=== PATIENT | male | born 1960 | race Caucasian/White ===

== ENCOUNTER 2018-11-19 14:09 | Emergency (ER) | payer OTHER ==
[~2018-11-19] VITALS: Ht 170.2 cm; Wt 110.0 kg
[2018-11-19] MEDS ORDERED: LOSARTAN POT50 MG PO (14:22)
[2018-11-19] MEDS ORDERED: AMLODIPINE10 MG PO (14:22)
[2018-11-19] MEDS ORDERED: CARVEDILOL25 MG PO (14:22)
[2018-11-19] MEDS ORDERED: CRESTOR10 MG PO (14:23)
[2018-11-19] MEDS ORDERED: CHLORTHALID25 MG PO (14:24)
[2018-11-19] MEDS ORDERED: NOVOLOG100 UNIT/M (14:24)
[2018-11-19] MEDS ORDERED: LANTUS100 UNIT/M SC (14:24)
[2018-11-19] MEDS ORDERED: TESSALON PERLE100 MG PO (15:51)
[2018-11-19] MEDS ORDERED: ZITHROMAX500 MG PO (15:51)
[2018-11-19 16:11] VITALS: BP 116/44
== END 2018-11-19 16:11 | disposition home or self-care (01) | DRG 153 ==
LOC: ED 14:09
DX: J06.9 Acute upper respiratory infection, unspecified (principal); I10 Essential (primary) hypertension; E11.40 Type 2 diabetes mellitus with diabetic neuropathy, unspecified; Z79.4 Long term (current) use of insulin

== ENCOUNTER 2021-03-19 11:39 | Inpatient (IN) | payer OTHER ==
[~2021-03-19] VITALS: Ht 167.6 cm; Wt 95.0 kg
[~2021-03-19 11:39] MED LIST: AMLODIPINE10 MG PO; CARVEDILOL25 MG PO; CHLORTHALID25 MG PO; CRESTOR10 MG PO; LANTUS100 UNIT SC; LOSARTAN POT50 MG PO; NOVOLOG100 UNIT/M; TESSALON PERLE100 MG PO; ZITHROMAX500 MG PO
--- NOTE | 2021-03-19 11:59 | NUR ---
PT ESCORTED TO ROOM 14 WITH NEW ONSET FOOT PAIN, REDNESS AND SWELLING. WOUND NOTED TO RIGHT FOOT BETWEEN SECOND THROUGH FOURTH DIGIT.
[2021-03-19 13:02] LABS: HEMOGLOBIN 11.8 g/dl (14.0-18.0); IMMATURE GRANULOCYTES 0.4 % (0.0-5.0); MEAN CELL VOLUME 82.6 fL CALC (80.0-100.0); MEAN CORPUSCULAR HGB 27.1 pG CALC (26.0-32.0); MEAN CORPUSCULAR HGB CONC 32.8 g/dL CAL (32.0-36.0); NEUT# 12.06 thou/uL (1.82-7.42); RED BLOOD COUNT 4.36 mill/uL (4.70-6.10); RED CELL DISTRI WIDTH 12.9 % (11.5-15.5)
[2021-03-19 13:29] LABS: ALBUMIN 3.3 g/dL (3.2-5.0); BILIRUBIN, TOTAL 0.4 mg/dL (0.0-1.4); CREATININE 2.9 mg/dL (0.7-1.3); POTASSIUM 3.9 mmol/l (3.5-5.1)
--- NOTE | 2021-03-19 14:09 | NUR ---
PT AOX3, NAD, RESTING ON CARDIAC MONITORING
--- NOTE | 2021-03-19 15:18 | NUR ---
GAVE REPORT OT BHAVNA ANTOINE RN, CALLED DR TORRES FOR ADMITING ORDERS
--- NOTE | 2021-03-19 15:36 | NUR ---
REPORT WAS RECEIVED FROM LACIE ESCOBAR. PATIENT CAME FROM ER VIA WHEELCHAIR. PATIENT AMBULATED TO BED. IN ROOM. SAFETY PRECAUTIONS REINFORCED AND CALL LIGHT IN REACH.
[2021-03-19 15:46] VITALS: BP 173/78
--- NOTE | 2021-03-19 15:50 | NUR ---
ASSESSMENT DONE. PATIENT IS ALERT AND ORIENT X3. PATIENT DENIES PAIN. RESPS EVEN AND UNLABORED. PATIENT STATED HE IS ANXIOUS . DISCUSS POC AND PATIENT VERBALIZED UNDERSTANDING. RIGHT LEG FOOT +3 EDEMA AND WARM TO THE TOUCH. WOUND RIGHT FOOT BETWEEN SECOND THROUGH FOURTH DIGIT NOTED AND MILD CLEAR/PINKISH DRAINGE NOTED. CALL LIGHT IN REACH.
[2021-03-19] MEDS ORDERED: D31000 UNI1 PO (17:03)
[2021-03-19 17:55] VITALS: BP 166/75
--- NOTE | 2021-03-19 19:21 | NUR ---
PT RESTING IN BED, NO SIGNS OF DISTRESS NOTED, RESP EVEN AND UNLABORED. PT ALERT AND ORIENTED X3, NOTED EDEMA TO BLE, MORE ON THE RIGHT. REDNESS AND EDEMA TO R FOOT, NO DRAINAGE NOTED BUT CRUSTING TO TOES NOTED. PT DENIES ANY PAIN TO FOOT. PULSES WEAK, CAPILLARY REFILL BRISK, SKIN WARM TO TOUCH. DISCUSSED POC, PT VERBALIZED UNDERSTANDING. NOTED PT HAS A NON PRODUCTIVE PERSISTENT COUGH. ASSESSMENT COMPLETED, CALL LIGHT IN REACH, CONTINUE TO MONITOR.
--- NOTE | 2021-03-19 21:05 | NUR ---
NOTIFIED MD OF COUGH AND ORDERS ENTERED VIA CPOE, ENTERED ROOM PT SITTING ON SIDE OF BED, NO SIGNS OF DISTRESS NOTED, RESP EVEN AND UNLABORED, PT MEDICATED PER JUL, BLOOD SUGAR CHECKED VIA DEVICE TO L ARM, BLOOD SUGAR 189, DISCUSSED WITH PT SLIDING SCALE INSULIN AND LEVEMIR, PT STATES HE DOESN'T NORMALLY TAKE LEVEMIR AT NIGHT AND REFUSED HIS DOSE, DOCUMENTED ON JUL. PT APPRECIATIVE OF COUGH SYRUP, VOICES NO OTHER NEEDS OR COMPLAINTS AT THIS TIME. CALL LIGHT IN REACH,CONTINUE TO MONITOR.
--- NOTE | 2021-03-19 22:00 | NUR ---
PT RESTING IN BED WITH EYES CLOSED, NO SIGNS OF DISTRESS NOTED, RESP EVEN AND UNLABORED. CALL LIGHT IN REACH,CONTINUE TO MONITOR.
--- NOTE | 2021-03-20 | NUR ---
PT RESTING IN BED WITH EYES CLOSED,NO SIGNS OF DISTRESS NOTED, RESP EVEN AND UNLABORED. IV ZOSYN INFUSING, CALL LIGHT IN REACH, CONTINUE TO MONITOR.
--- NOTE | 2021-03-20 03:39 | NUR ---
PT RESTING IN BED, OWNER/PHOTOGRAPHER OBTAINED AM VITALS, NO SIGNS OF DISTRESS NOTED, RESP EVEN AND UNLABORED. PT HAS A LOW GRADE TEMP, VOICES NO NEEDS OR COMPLAINTS AT THIS TIME, CALL LIGHT IN REACH,CONTINUE TO MONITOR.
[2021-03-20 04:00] VITALS: BP 167/86
[2021-03-20 06:07] LABS: HEMATOCRIT 32.7 % (39.0-50.0); HEMOGLOBIN 10.5 g/dl (14.0-18.0); MEAN CELL VOLUME 84.3 fL CALC (80.0-100.0); MEAN CORPUSCULAR HGB 27.1 pG CALC (26.0-32.0); MEAN CORPUSCULAR HGB CONC 32.1 g/dL CAL (32.0-36.0); RED BLOOD COUNT 3.88 mill/uL (4.70-6.10)
[2021-03-20 06:36] LABS: CREATININE 2.5 mg/dL (0.7-1.3)
[2021-03-20 08:07] VITALS: BP 154/76
--- NOTE | 2021-03-20 08:52 | NUR ---
PATIENT IS SITTING IN THE SIDE OF THE BED. ASSESSMENT DONE. PATIENT IS ALERT AND ORIENT X3. PATIENT DENIES PAIN AT THIS TIME. PATIENT HAS A DRY COUGH . MEDICATED PATIENT WITH ROBITUSSIN. RIGHT LEG FOOT IS WARM TO THE TOUCH WITH REDNESS NOTED. PATIENT DENIES ANY OTHER NEEDS AT THIS TIME. CALL LIGHT IN REACH.
--- NOTE | 2021-03-20 12:00 | NUR ---
PATIENT SITTING IN THE SIDE OF THE BED EATING HIS LUNCH. PATIENT DENIES ANY NEEDS AT THIS TIME. CALL LIGHT IN REACH.
--- NOTE | 2021-03-20 15:09 | NUR ---
PATIENT IS SITTING IN THE RECLINER WITH NO DISTRESS NOTED. PATIENT DENIES PAIN. LEGS ELEVATED IN RECLINER. CALL LIGHT IN REACH.
[2021-03-20 15:45] VITALS: BP 130/69
[2021-03-20 19:49] VITALS: BP 161/72
--- NOTE | 2021-03-20 20:00 | NUR ---
PATIENT SITTING ON THE SIDE OF THE BED AT THIS TIME. AWAKE ALERT AND ORIENTEDX3. PATIENT WITH FEET HANGING OFF THE BED. RIGHT FOOT IS RED AND SWOLLEN AT THIS TIME-ENCOURAGE PATIENT TO ELEVATE THE RIGHT FOOT ON PILLOW MUYCH POSSIBLE. PATIENT WITH IV SITE TO LAC INTACT WITH IVF NS PATENT AND INFUSING AT 75CC/HR. SITE IS HEALTHY AT THIS TIME. SAFETY PRECAUTIONS REINFORCED. CALL LIGHT IN REACH. WILL CONT TO MONITOR.
--- NOTE | 2021-03-20 21:00 | NUR ---
PATIENT RESTING IN BED AT THIS TIME-ACCUCHECK WAS 97 PER PATIENT DEXACON. PATIENT REFUSING HIS LEVEMIR AT THIS TIME-STATES THAT HE HAS BEEN RUNNING LOW LATELY AND ONLY TAKES HIS LANTUS AT HOME ONCE A DAY-WILL DISCUSS WITH MD IN AM. PROVIDED WITH HS SNACK. NON-PRODUCTIVE COUGH NOTED AND MEDICATED WITH ROBITUSSIN ORDERED. CALL LIGHT IN REACH. WILL CONT TO MONITOR.
[2021-03-21] VITALS: BP 166/77
--- NOTE | 2021-03-21 | NUR ---
PATIENT RESTING IN BED WITH RIGHT FOOT ELEVATED INSTRUCTED. CADEN HUNG ORDERED. NO COMPLAINTS AT THIS TIME. OFFERED SLEEP MED BUT DECLINED. CALL LIGHT IN REACH. WILL CONT TO MONITOR.
[2021-03-21 04:00] VITALS: BP 145/72
[2021-03-21 05:08] LABS: HEMATOCRIT 32.9 % (39.0-50.0); HEMOGLOBIN 10.6 g/dl (14.0-18.0); MEAN CELL VOLUME 83.7 fL CALC (80.0-100.0); MEAN CORPUSCULAR HGB CONC 32.2 g/dL CAL (32.0-36.0); RED BLOOD COUNT 3.93 mill/uL (4.70-6.10); RED CELL DISTRI WIDTH 13.1 % (11.5-15.5)
--- NOTE | 2021-03-21 05:15 | NUR ---
PATIENT AWAKE RESTING IN BED-RIGHT FOOT REMAINS VERY RED WITH SOME CRUSTY DRY DRAINAGE TO THE TOES. FAINT PULSE.WARM TO TOUCH. CONT TO ENCOURAGE PATIENT TO KEEP RIGHT FOOT ELEVATED ON PILLOWS. PATIENT CHECKED HIS OWN KANG GLUCOSE MONITORING DEVICE READING 45. PATIENT IS ASYMPTOMATIC AT THIS TIME. SKIN IS WARM AND DRY, COLOR IS WNL. ORIENTEDX3. BS CHECKED USING HOSPITAL GLUCOSE MONITRING DEVICE AND IT IS 77. PATIENT PROVIDED WITH SNACK. IVF NS PATENT AND INFUSING VIA LAC SITE AT 75CC/HR. SAFETY PRECAUTIONS REINFORCED. CALL LIGHT IN REACH. WILL CONT TO MONITOR.
[2021-03-21 05:23] LABS: BILIRUBIN, TOTAL 0.4 mg/dL (0.0-1.4); CREATININE 2.5 mg/dL (0.7-1.3); POTASSIUM 3.6 mmol/l (3.5-5.1); TOTAL PROTEIN 5.6 g/dL (6.3-8.2)
[2021-03-21 05:24] LABS: ALBUMIN 2.6 g/dL (3.2-5.0)
[2021-03-21 07:00] VITALS: BP 148/82
--- NOTE | 2021-03-21 07:00 | NUR ---
PATIENT LAYING IN BED AT THIS TIME RESTING WITH R FOOT UP ON PILLOW AT THIS TIME. PATINET DENIES PAIN AND TOES PRESENT SWOLLEN AND CRUSTY AND RED AT THIS TIME. PATIENT HAS LIBREA TO CHECK ACCU CHECKS BUT HAS BEEN TOLD BY THIS NURSE NOT TO USE THAT WE WILL FINGER STICK AND USE OUR LABS FOR ACCU CHECK RESULTS DUE TO DISCREPENCES IN RESULTS. PATIENT AGREES AND WILL FOLLOW REQUEST. SIDERAILS ARE UP X 2 CALL LIGHT IS WIHTIN REACH. LUNG CARRILLO ARE CLEAR IN UPPER AND DIMINISHED IN LOWER CARRILLO. WILL CONTINUR TO MONITOR.
--- NOTE | 2021-03-21 07:10 | NUR ---
S: BRADEN VASQUEZ is a 60 M who presents with cellulits He has a history of diabetes, hypertension, kidney disease, retinal neuropathy, skin cancer. All medications in patient's chart were reviewed. O: VS: BP 145/72 MMHG, P 72 BPM, RR 18 BPM,T 99.3F W 95 KG, HT 5'6", Scr= 2.5 mg/dL, CrCl= 30.8 mL/min A: Blood culture is pending P: Patient is on Zosyn 3.375 G IV Q6H. Vancomycin ordered for pharmacy to dose. Start Vancomycin 1 G IV Q24H. Vancomycin trough is drawn before the 4th dose on 03/22/2021 @ 1230. Vancomycin goal trough is between 10-15 mcg/ml. Pharmacy will follow and or advise on antibiotics use as needed.
--- NOTE | 2021-03-21 12:00 | NUR ---
PATIENT SITTING UP IN CHAIR AT THIS TIME DENIES ANY PAIN AND OR NEEDS CURRENTLY. PATIENT CALL LIGHT IS WITHIN REACH AND WILL CONTINUE TO MONITOR TOES ON RT FOOT REMAIN DRY AND CRUSTY AT THIS TIME AND SWOLLEN AND RED. WILL CONTINUE TO MONITOR
[2021-03-21 15:51] VITALS: BP 140/73
--- NOTE | 2021-03-21 15:51 | NUR ---
PATIENT SITTING IN RECLINER AT THIS TIME. PATIENT DENIES ANY NEEDS. PATIENT STATED THAT HE WANTS TO GO AND GET A SHOWER SO IV S/LOCKED AT THIS TIME. WITH PATIENT AT THIS TIME TO ASSIST WITH SHOWER. CALL LIGHT IS WITHIN REACH.
--- NOTE | 2021-03-21 16:54 | NUR ---
200MG OF ROBITUSSIN ORAL GIVEN AT THIS TIME FOR NON-PRODUCTIVE COUGH.
[2021-03-21 19:00] VITALS: BP 164/71
--- NOTE | 2021-03-21 20:30 | NUR ---
PATIENT RESTING IN BED AT THIS TIME. AWAKE ALERT AND ORIENTEDX3. PATIENT WITH RIGHT FOOT ELEVATED ON PILLOWS. PATIENT WITH TEMP OF 100.1 EARLIER. MEDICATED WITH TYLENOL FOR LOW GRADE TEMP. IVF PATENT AND INFUSING VIA LAC SITE AT KVO RATE. ACCU-CHECK TONIGHT WAS 80. NO INSULIN GIVEN. INSTRUCTED NPO AFTER MIDNIGHT FOR POSSIBLE OR TOMORROW WITH DR. CHIANG. SAFETY PRECAUTIONS REINFORCED. CALL LIGHT IN REACH. WILL CONT TO MONITOR.
--- NOTE | 2021-03-21 23:56 | NUR ---
PATIENT RESTING IN BED WATCHING TV AT THIS TIME. AFEBRILE. ZOSYN HUNG ORDERED VIA LAC SITE. REINFORCED WITH PATIENT NPO A[place]ER [place] FOR POSSIBLE OR TOMORROW WITH DR. CHIANG. CALL LIGHT IN REACH. WILL CONT TO MONITOR.
[2021-03-22 04:10] VITALS: BP 167/83
--- NOTE | 2021-03-22 04:36 | NUR ---
PATIENT RESTING IN BED AT THIS TIME. EYES ARE CLOSED AND RESPS ARE EVEN AND UNLABORED. RIGHT FOOT ELEVATED ON PILLOWS. REMAINS NPO SINCE MN FOR PO SSIBLE OR TODAY. IVF PATENT AND INFUSING VIALAC SITE AT KVO RATE. CALL LIGHT IN REACH. WILL CONT TO MONITOR.
[2021-03-22 05:16] LABS: HEMATOCRIT 31.1 % (39.0-50.0); HEMOGLOBIN 10.2 g/dl (14.0-18.0); MEAN CELL VOLUME 83.2 fL CALC (80.0-100.0); MEAN CORPUSCULAR HGB 27.3 pG CALC (26.0-32.0); MEAN CORPUSCULAR HGB CONC 32.8 g/dL CAL (32.0-36.0); RED BLOOD COUNT 3.74 mill/uL (4.70-6.10)
[2021-03-22 05:41] LABS: ALBUMIN 2.5 g/dL (3.2-5.0); BILIRUBIN, TOTAL 0.4 mg/dL (0.0-1.4); CREATININE 2.5 mg/dL (0.7-1.3); POTASSIUM 3.3 mmol/l (3.5-5.1); TOTAL PROTEIN 5.5 g/dL (6.3-8.2)
--- NOTE | 2021-03-22 07:46 | NUR ---
SPOKE TO THIS MORNING . PT IS ALLOWED TO HAVE BREAKFAST. PT NEEDS TO BE NPO AFTER [address] CHIANG WAS INFORMED ABOUT MRI THAT WAS ORDERED FOR THIS MORNING . DR. CHIANG SAID PT MIGHT GO DOWN TO SURGERY TONIGHT DEPENDING HOW THE MRI LOOKED.
--- NOTE | 2021-03-22 07:54 | NUR ---
CALL PLACED TO DR VALLADARES BY Peyton RAMOS REGARDING NPO STATUS; PER JACQUELYN PT CAN EAT BREAKFAST; TO BE NPO AFTER 10 AM; DEPENDING ON MRI RESULTS IT WILL DETERMINE IF PT IS TO GO DOWN TO THE OR TODAY. PT UPDATED ON POC & NEW NPO STATUS AFTER 10 AM.
[2021-03-22 08:00] VITALS: BP 182/80
--- NOTE | 2021-03-22 08:00 | NUR ---
PT AWAKE IN RECLINER A &O X3. ASSESMMENT WAS PERFORMED AT THIS TIME: HEART SOUNDS ARE REGULAR. LUNG SOUNDS ARE CLEAR UPPER/LOWER LOBES. BOWEL SOUNDS ACTIVE X4. RADIAL PULSES ARE STRONG. RADIAL PULSES WEAK EQUALLY BILTERALLY. RIGHT FOOT IS SWOLLEN RED/ SLIGHT DARK BLUE UNDER TOE PAD. DISCOLORATION. WARM TO TOUCH. NO DRAINAGE NOTED COMING FROM WOUND. PT STATES DOES NOT HURT WHEN TOUCHED. PT STATES NOT HAVING ANY PAIN AT THIS TIME. PT IV #20 LAC AT KVO. MRI IS SCHEDULED FOR THIS MORNING. PT IS NPO. CALL LIGHT IS WITHIN REACH.
--- NOTE | 2021-03-22 08:27 | NUR ---
DR VIVEROS CONSULT PLACED FOR ABX REC; CELLULITIS; POSS ABSCESS.
--- NOTE | 2021-03-22 10:53 | NUR ---
DR. EL AND LARISSA VALE AT BEDSIDE DISCUSSING POC WITH PT.
--- NOTE | 2021-03-22 12:00 | NUR ---
PT IS ALERT RESTING IN RECLINER WATCHING TV. IV PATENT SHOWING NO SIGNS OF COMPLICATION. PT UNDERSTANDS ABOUT REMAINING NPO AT THIS TIME. RIGHT FOOT STILL INFLAMED/ RED NO DRAINING NOTED. CALL LIGHT IS WITHIN REACH.
[2021-03-22 15:24] VITALS: BP 142/65
--- NOTE | 2021-03-22 16:00 | NUR ---
PT RESTING IN RECLINER ON PHONE WITH FAMILY MEMBER. STATES DISCOMFORT WITH BEING NPO. STATES NO PAIN AT THIS TIME. IV IS PATENT SHOWING NO SIGNS OF INFILTRATION. CALL LIGHT WITHIN REACH.
--- NOTE | 2021-03-22 17:14 | NUR ---
PT LEFT TO OR WITH RN CATIE PT STABLE CONDITION. IV INTACT.
--- NOTE | 2021-03-22 19:45 | NUR ---
PT BACK FROM PACU. PT STATES HE IS FEELING WELL WITH NO PAIN TO HIS RIGHT FOOT. VITALS AND GLUCOSE TAKEN. IV CHECKED AND REESTABLISHED. WILL CONTINUE TO MONITOR.
[2021-03-22 19:51] VITALS: BP 151/57
--- NOTE | 2021-03-22 20:00 | NUR ---
PHYSICAL ASSESMENT COMPLETE. PT CURRENTLY DENIES PAIN OR DISCOMFORT. SCHEDULED MEDICATIONS AND PRN MEDICATION ADMINISTERED, SEE E-MAR. PT DENIES ANY NEEDS AT THIS TIME. PLAN OF CARE REVIEWED, PT DENIES QUESTIONS, VERBALIZES UNDERSTANDING. ITEMS WITHIN REACH, BED LOCKED IN LOW POSITION W/ BEDRAILS UP X2. CALL MORALES WITHIN REACH, AGREES TO CALL PRN.
--- NOTE | 2021-03-22 23:43 | NUR ---
PT LAYING IN BED WITH EYES CLOSED, APPEARS TO BE SLEEPING, APPEARS COMFORTABLE AND IN NO DISTRESS. RESPIRATIONS REGULAR AND UNLABORED. ITEMS REMAIN WITHIN REACH, CALL MORALES REMAINS WITHIN REACH. BED REMAINS LOCKED AND IN LOW POSITION WITH BEDRAILS UP X2. WILL CONTINUE TO MONITOR.
[2021-03-23 04:00] VITALS: BP 176/78
--- NOTE | 2021-03-23 04:00 | NUR ---
PT RESTING IN BED, NO SIGNS OF DISTRESS NOTED, RESP EVEN AND UNLABORED. PT VOICES NO NEEDS OR COMPLAINTS AT THIS TIME. CALL LIGHT IN REACH, CONTINUE TO MONITOR.
[2021-03-23 05:00] LABS: HEMATOCRIT 29.8 % (39.0-50.0); HEMOGLOBIN 9.7 g/dl (14.0-18.0); MEAN CELL VOLUME 82.8 fL CALC (80.0-100.0); MEAN CORPUSCULAR HGB 26.9 pG CALC (26.0-32.0); MEAN CORPUSCULAR HGB CONC 32.6 g/dL CAL (32.0-36.0); RED BLOOD COUNT 3.6 mill/uL (4.70-6.10); RED CELL DISTRI WIDTH 13.1 % (11.5-15.5)
[2021-03-23 05:20] LABS: CREATININE 2.3 mg/dL (0.7-1.3); MAGNESIUM 1.7 mg/dL (1.6-2.3); POTASSIUM 3.6 mmol/l (3.5-5.1)
[2021-03-23 05:45] VITALS: BP 156/68
--- NOTE | 2021-03-23 06:52 | NUR ---
DR VALLADARES AT BEDSIDE DISCUSSING POC
--- NOTE | 2021-03-23 07:35 | NUR ---
PER DR VALLADARES PT ABLE TO BEAR WEIGHT TO RT FOOT WITH HEEL.
--- NOTE | 2021-03-23 07:35 | NUR ---
S: WALKERBRADEN is a 60 M who presents with complaints of erythema and edema to the right foot. He has a history of CKD, DM and HTN. All medications in patient's chart were reviewed. O: VS: BP 156/68 , P 78 , RR 23,T 100.3 W <94.999>, HT167.64, Scr= 2.5 ,CrCl= 33.5 ml/min A: Blood culture show no growth. Wound culture is pending . P: Patient is on metronidazole 100 ml Q8H IV, cefepime Hcl 2g BID IV. Vancomycin ordered for pharmacy to dose. Start Vancomycin 1g IV Q24H. Vancomycin trough is drawn before the 4th dose on 03/25 @1230. Vancomycin goal trough is between <10-15 mcg/ml>. Pharmacy will follow and or advise on antibiotics use as needed.
[2021-03-23 07:44] VITALS: BP 162/70
--- NOTE | 2021-03-23 08:00 | NUR ---
PT SITTING IN RECLINER WITH RIGHT FOOT ELEVATED. DRESSING IS CDI NO REINFORCEMENT NEEDED AT THIS TIME. NO ICE IS ALLOWED ON THE RIGHT FOOT. PT REPORTS NO PAIN AT THIS TIME. IV LOCATED IN LAC KVO @ 20ML/HR. FLUSHED WITH NORMAL SALINE WITH NO RESISTANCE. PT A&O X3, S1 AND S2 HEARD, LUNG SOUNDS ARE CLEAR UPPER LOWER LOBES. BOWEL SOUNDS ARE ACTIIVE X4. RADIAL PULSE STRONG EQUALLY BILATERALLY. PEDAL PULSES ARE WEAK EQUALLY BILATERALLY. CALL LIGHT AND PERSONAL ITEMS ARE WITHIN REACH.
--- NOTE | 2021-03-23 10:06 | NUR ---
DR. EL AND LARISSA VALE IN PT ROOM DISCUSSING POC.
--- NOTE | 2021-03-23 12:00 | NUR ---
PT LAYING RESTING IN BED WITH RIGHT FOOT ELEVATED. IV STILL KVO INFUSING 20 ML/HR WITH NO COMPLICATIONS. DRESSING IS CDI NO REINFORCMENT NEEDED. PT REPORTS NO PAIN AT THIS TIME. PT ENCOURAGED TO USE CALL LIGHT FOR ASSISTANCE. CALL LIGHT WITHIN REACH.
--- NOTE | 2021-03-23 15:31 | NUR ---
PT WITH AT BEDSIDE. NO DISTRESS NOTED.
[2021-03-23 15:33] VITALS: BP 178/79
--- NOTE | 2021-03-23 18:40 | NUR ---
PT RESTING IN BED WITH LEG ELEVATED. DRESSING IS CDI. NO REINFORCEMENT NEEDED AT THIS TIME. IV INFUSING KVO WITH NO COMPLICATION. PT REPORTS NO PAIN AT THIS TIME. CALL LIGHT WITHIN REACH
[2021-03-23 19:25] VITALS: BP 160/80
--- NOTE | 2021-03-23 20:00 | NUR ---
PATIENT AWAKE ALERT AND ORIENTEDX3. PATIENT WITH NO COMPLAINTS AT THIS TIME. DENIES ANY PAIN AT THIS TIME. PATIENT WITH RIGHT FOOT DRESSING CDI AT THIS TIME. ENCOURAGED PATIENT TO KEEP RIGHT LE ELEVATED ON PILLOWS MUCH POSSIBLE. PATIENT IS ABLE TO AMB HEEL WT BEARING PER PODIATRY. FOR FUTHER SURGERY LATER THIS WEEK WITH DR. CHIANG. IVF NS PATENT AND INFUSING VIA LAC SITE AT KVO RATE. SAFETY PRECAUTIONS REINFORCED. CALL LIGHT IN REACH. WILL CONT TO MONITOR.
--- NOTE | 2021-03-23 21:30 | NUR ---
PATIENT RESTING IN BED AT THIS ACDE-IDZG-TJJJI WAS 266. PATIENT STATES THAT HE IS AFRAID TO TAKE LEVEMIR ORDERED AT NIGHT. COVERED WITH HUMALOG PER COVERAGE SCALE. PATIENT AGAIN STATES THAT HE NORMALLY ONLY TAKES HIS LANTUS AT HOME DAILY AND HE TAKE IT IN THE MORNING. WILL PASS ALONG AGAIN IN REPORT IN AM. ANTIBIOTICS GIVEN ORDERED. DENIES PAIN AT THIS TIME. STILL WITH RLE ELEVATED ON PILLOWS. CALL LIGHT IN REACH. WILL CONT TO MONITOR.
[2021-03-24] VITALS (8 sets, daily range): BP systolic 139–189; BP diastolic 67–87
--- NOTE | 2021-03-24 01:00 | NUR ---
PATIENT APPEARS SLEEPING WITH EYES CLOSED. RESPS ARE EVEN AND UNLABORED. IVF PATENT AND INFUSING VIA LAC SITE AT KVO RATE. CALL LIGHT IN REACH. WILL CONT TO MONITOR.
--- NOTE | 2021-03-24 03:47 | NUR ---
RESTING IN BED AT THIS TIME. EYES ARE CLOSED AND RESPS ARE EVEN AND UNLABORED. IVF PATENT AND INFUSING AT KVO RATE LAC SITE. CALL LIGHT IN REACH WILL CONT TO MONITOR.
--- NOTE | 2021-03-24 04:22 | NUR ---
PATIENT SITTING UP IN CHAIR AT THIS TIME-AWAKE ALERT AND ORIENTEDX3. NEW IV STARTED TO RIGHT FOREARM-#22 WITH GOOD BLOOD RETURN. OLD IV SITE TO LAC D/C'ED WITH CATH INTACT. IVF PATENT AND INFUSING VIA RIGHT FOREARM SITE AT KVO RATE. DRESSING TO RIGHT FOOT REMAINS INTACT. ENCOURAGED ELEVATION OF RIGHT LE ON PILLOW MUCH POSSIBLE. SAFETY PRECAUTIONS REINFORCED. CALL LIGHT IN REACH. WILL CONT TO MONITOR.
--- NOTE | 2021-03-24 05:05 | NUR ---
PATIENT UP IN THE ROOM DOING PERSONAL CARE. AMB WITH HEEL BEARING TO RLE. DRESSING TO RIGHT FOOT IS CDI SECURED WITH VALERIA WRAP. RIGHT TOES ARE RED AND WARM TO TOUCH. PATIENT ABLE TO WIGGLE THESE TOES. NO PAIN AT THIS TIME. ENCOURAGED PATIENT TO KEEP RIGHT LE ELEVATED WHEN ABLE. BP-189/82, HR-68. MEDICTED WITH APRESOLINE 10MG IVP ORDERED FOR HTN. CALL LIGHT IN REACH. WILL CONT TO MONITOR.
[2021-03-24 05:41] LABS: CREATININE 2.4 mg/dL (0.7-1.3); POTASSIUM 3.9 mmol/l (3.5-5.1)
--- NOTE | 2021-03-24 05:48 | NUR ---
PATIENT REMAINS UP IN THE RECLINER. BP RECHECK AFTER BEING MEDICATED WAS 161/71, HR-75 WITH O2 SAT OF 94% ON ROOM AIR. YL HUNG ORDERED. WILL CONT TO MONITOR.
--- NOTE | 2021-03-24 14:05 | NUR ---
PT UP TO CHAIR, AT BEDSIDE. NO COMPLAINTS AT THIS TIME. WILL CONTINUE TO MONITOR.
--- NOTE | 2021-03-24 19:27 | NUR ---
PT SITTING ON SIDE OF BED, NO SIGNS OF DISTRESS NOTED, RESP EVEN AND UNLABORED. DISCUSSED POC, PT UNSURE OF WOUND VAC IN AM, QUESTIONS ANSWERED BEST TO WRITERS KNOWLEDGE ALLOWED PT TO EXPRESS HIS CONCERNS, ENCOURAGED PT TO PRESENT HIS CONCERNS IN AM TO MD. PT MEDICATED PER JUL FOR BP, WILL RECHECK IN 1HR. DRESSING TO R FOOT CDI, SKIN WARM, CAPILLARY REFILL BRISK NOTED TO TOES. PT STATES HE HAD A BM TODAY. ASSESSMENT COMPLETED, CALL LIGHT IN REACH,CONTINUE TO MONITOR.
--- NOTE | 2021-03-24 21:26 | NUR ---
PT RESTING IN BED, MEDICATED PER MAR, NO SIGNS OF DISTRESS NOTED, RESP EVEN AND UNLABORED. VOICES NO NEEDS OR COMPLAINTS AT THIS TIME, CALL LIGHT IN REACH,CONTINUE TO MONITOR.
[2021-03-25] VITALS (10 sets, daily range): BP systolic 157–204; BP diastolic 60–94
--- NOTE | 2021-03-25 00:16 | NUR ---
PT SITTING IN RECLINER WATCHING TV, NO SIGNS OF DISTRESS NOTED, RESP EVEN AND UNLABORED. PT VOICES NO NEEDS OR COMPLAINTS AT THIS TIME. CALL LIGHT IN REACH,CONTINUE TO MONITOR.
--- NOTE | 2021-03-25 04:15 | NUR ---
PT RESTING IN BED PRIMARY MILL ROLLER AT BEDSIDE, NO SIGNS OF DISTRESS NOTED,RESP EVEN AND UNLABORED. VOICES NO NEEDS OR COMPLAINTS AT THIS TIME, CALL LIGHT IN REACH,CONTINUE TO MONITOR.
--- NOTE | 2021-03-25 04:27 | NUR ---
RESTING COMFORTABLY, EYES CLOSED. NO DISTRESS NOTED. BED IN LOW POSITION, LOCKED. CALL LIGHT WITHIN REACH.
[2021-03-25 04:34] LABS: HEMATOCRIT 32.6 % (39.0-50.0); HEMOGLOBIN 10.7 g/dl (14.0-18.0); MEAN CELL VOLUME 82.3 fL CALC (80.0-100.0); MEAN CORPUSCULAR HGB CONC 32.8 g/dL CAL (32.0-36.0); RED BLOOD COUNT 3.96 mill/uL (4.70-6.10); RED CELL DISTRI WIDTH 13.2 % (11.5-15.5)
[2021-03-25 04:53] LABS: POTASSIUM 3.5 mmol/l (3.5-5.1)
--- NOTE | 2021-03-25 05:06 | NUR ---
BP ELEVATED, PT HAS A PRN ORDER FOR BENJAMIN SOLORIO AT BEDSIDE TO ADMINISTER, NOTED GLUCOSE 74 PER AM LABS, SNACK PROVIDED. CALL LIGHT IN REACH,CONTINUE TO MONITOR.
--- NOTE | 2021-03-25 05:39 | NUR ---
PT MEDICATED ORDERS PROVIDE. PT SELF ADMINISTERED HEP SHOT TO LOWER ABD AREA.
--- NOTE | 2021-03-25 07:30 | NUR ---
REPORT RECEICED PT UP TO CHAIR. ASSESSMENT PERFORMED, B/P 204/87. PT WAS GIVEN APRESOLINE AT 0503. PT IS NPO AT THIS TIME SINCE 0500. PT GIVEN MORNING MEDIATIONS SLIGHTLY EARLY D/T INCREASED BP. PT BS 111, HOLDING ALL DIABETIC MEDICAITONS. WILL RECHECK BP. PT STATES HE IS ASYMPTOMATIC AT THIS TIME. NO FURTHER CONCERNS. CONTINUE TO MONITOR.
--- NOTE | 2021-03-25 09:00 | NUR ---
INFORMED OR OF INCREASED BP AND MEDICATION ADMIN WITH NPO STATUS. PT GIVEN PRN APRESOLINE. WILL RECHECK BP.
--- NOTE | 2021-03-25 09:45 | NUR ---
BP 130/62. WILL CONTINUE TO MONITOR.
--- NOTE | 2021-03-25 11:01 | NUR ---
PT TO OR VIA STRETCHER
--- NOTE | 2021-03-25 13:44 | NUR ---
PT BACK FROM OR, REORIENTED TO ROOM. NO COMPLAINTS AT THIS TIME WILL CONTINUE TO MONITOR.
--- NOTE | 2021-03-25 16:00 | NUR ---
RETURN FROM OR WITH NEW IV SITE. R AC REMOVED IN OR.
--- NOTE | 2021-03-25 17:16 | NUR ---
PT LYING IN BED LEG ELEVATED NO COMPLAINTS AT THIS TIME. WILL CONTINUE TO MONITOR.
--- NOTE | 2021-03-25 21:13 | NUR ---
PT MEDICATED ORDERS PROVIDE AND ASSESSMENT COMPLETED AT THIS TIME. PT DENIES PAIN/N/V AT THIS TIME. DRESSING TO R.FOOT CDI WITH VALERIA WRAP IN PLACE. SCD TO LLE ON.
--- NOTE | 2021-03-25 21:40 | NUR ---
PT MEDICATED ORDERS PROVIDE. PT REPORTS THAT HE HAD TWO TURKEY SANDWICHES FOR SNACK. MEDICATED WITH LEVEMIR ORDERS PROVIDE. ANTIBIOTIC THERAPY ADMINISTERED AT THIS TIME.
--- NOTE | 2021-03-25 22:30 | NUR ---
ASSISTED PT TO RESTROOM, HE AMBULATED W/OUT ISSUE W/HEEL WEIGHT ONLY. PT BACK TO THE BED, DENIES PAIN AT THIS TIME. IV FLUSHED PATENT.
[2021-03-26 00:05] VITALS: BP 126/54
--- NOTE | 2021-03-26 03:00 | NUR ---
Pt awake dressed and sitting in chair in the room with his boot on his right foot. He is watching tv and talkative. Provided diet soda per request, denies any pain.
[2021-03-26 04:00] VITALS: BP 151/70
[2021-03-26 06:04] LABS: CREATININE 2.2 mg/dL (0.7-1.3); POTASSIUM 3.8 mmol/l (3.5-5.1)
--- NOTE | 2021-03-26 06:48 | NUR ---
pt medicated as orders provide. He is up in chair watching tv with lights on. Reports having ambulated to the restroom with boot on the r. foot. Reports stool and urine output.
--- NOTE | 2021-03-26 07:00 | NUR ---
BED SIDE REPORT RECEIVED. ASSESSMENT PERFORMED. PT SITTING UP TO CHAIR WATCHING TV. PT REFUSED 1 UNIT, STATED WILL WAIT FOR LONG ACTING INSULIN FOR COVERAGE. NO COMPLAINTS OF PAIN. WILL CONTINUE TO MONITOR.
[2021-03-26 07:41] VITALS: BP 178/80
--- NOTE | 2021-03-26 08:05 | NUR ---
DR VALLADARES SAW PT CHANGED RIGHT FOOT DRESSING. PLANS TO HAVE PICC LINE INSERTED TODAY AND SEND PT HOME WITH IV ABX TX. SATED HE WILL SEE PT IN OFFICE NEXT WEKK, HIS STAFF WILL CALL PT TO SCHEDULE.
[2021-03-26] MEDS ORDERED: ROCEPHIN1 G1 IV (08:17)
[2021-03-26] MEDS ORDERED: AMLODIPINE BESYL5 MG PO (09:44)
[2021-03-26] MEDS ORDERED: PERCOCET 10/31 COMBO PO (09:48)
[2021-03-26 11:33] VITALS: BP 128/62
--- NOTE | 2021-03-26 12:50 | NUR ---
Discharge instructions given. Patient verbalizes understanding of same. Discharged in stable condition via Wheelchair to *Other with family. All belongings sent with pt.
== END 2021-03-26 12:49 | disposition home or self-care (01) | DRG 571 ==
LOC: ED 11:39 → ED-I 14:28 → ED 14:44 → MS2 14:45
PROVIDERS: Family Medicine; Nurse Practitioner; Nurse Practitioner Family; ADMIT Internal Medicine; ATTEND Internal Medicine
PROC: 0J9Q0ZZ Drainage of Right Foot Subcutaneous Tissue and Fascia, Open Approach (ICD-10-PCS; principal; 2021-03-22)
PROC: 0JBQ0ZZ Excision of Right Foot Subcutaneous Tissue and Fascia, Open Approach (ICD-10-PCS; 2021-03-22)
PROC: 0JBQ0ZZ Excision of Right Foot Subcutaneous Tissue and Fascia, Open Approach (ICD-10-PCS; 2021-03-25)
PROC: 02HV33Z Insertion of Infusion Device into Superior Vena Cava, Percutaneous Approach (ICD-10-PCS; 2021-03-26)
PROC: B518ZZA Fluoroscopy of Superior Vena Cava, Guidance (ICD-10-PCS; 2021-03-26)
DX: L02.611 Cutaneous abscess of right foot (principal); L03.115 Cellulitis of right lower limb; N17.9 Acute kidney failure, unspecified; E87.6 Hypokalemia; S92.324A Nondisplaced fracture of second metatarsal bone, right foot, initial encounter for closed fracture; E11.65 Type 2 diabetes mellitus with hyperglycemia; E11.22 Type 2 diabetes mellitus with diabetic chronic kidney disease; I12.9 Hypertensive chronic kidney disease with stage 1 through stage 4 chronic kidney disease, or unspecified chronic kidney disease; N18.9 Chronic kidney disease, unspecified; E11.40 Type 2 diabetes mellitus with diabetic neuropathy, unspecified; E66.9 Obesity, unspecified; B95.61 Methicillin susceptible Staphylococcus aureus infection as the cause of diseases classified elsewhere; W22.8XXA Striking against or struck by other objects, initial encounter; Z68.33 Body mass index [BMI] 33.0-33.9, adult; Z79.4 Long term (current) use of insulin; Z20.822 Contact with and (suspected) exposure to COVID-19
CPT/HCPCS: G0378; J0692; Q3014

== ENCOUNTER 2021-07-06 10:32 | Emergency (ER) | payer OTHER ==
[~2021-07-06] VITALS: Ht 167.6 cm; Wt 95.0 kg
[~2021-07-06 10:32] MED LIST changes: +AMLODIPINE BESYL5 MG PO; +D31000 UNI1 PO; +PERCOCET 10/31 COMBO PO; +ROCEPHIN1 G1 IV
[2021-07-06] MEDS ORDERED: ELIQUIS STARTER5 MG PO (13:41)
[2021-07-06 13:49] VITALS: BP 194/88
== END 2021-07-06 13:55 | disposition home or self-care (01) | DRG 301 ==
LOC: ED 10:32
DX: I82.432 Acute embolism and thrombosis of left popliteal vein (principal); I12.9 Hypertensive chronic kidney disease with stage 1 through stage 4 chronic kidney disease, or unspecified chronic kidney disease; E11.22 Type 2 diabetes mellitus with diabetic chronic kidney disease; N18.9 Chronic kidney disease, unspecified; E11.40 Type 2 diabetes mellitus with diabetic neuropathy, unspecified; E11.51 Type 2 diabetes mellitus with diabetic peripheral angiopathy without gangrene; Z79.4 Long term (current) use of insulin

== ENCOUNTER 2022-09-21 17:57 | Inpatient (IN) | payer OTHER ==
[~2022-09-21] VITALS: Ht 167.6 cm; Wt 97.4 kg
[~2022-09-21 17:57] MED LIST changes: +ELIQUIS STARTER5 MG PO
[2022-09-21] MEDS ORDERED: LANTUS100 UNIT SC (19:24)
[2022-09-21] MEDS ORDERED: ATORVASTATIN CA80 MG PO (19:25)
[2022-09-21] MEDS ORDERED: BAYER ASPIRIN E81 MG PO (19:27)
[2022-09-21] MEDS ORDERED: AMLODIPINE BESY10 MG PO (19:28)
[2022-09-21] MEDS ORDERED: APRESOLINE50 MG PO (19:28)
[2022-09-21] MEDS ORDERED: EZETIMIBE10 MG (19:28)
[2022-09-21] MEDS ORDERED: ISOSORBIDE MONO60 MG PO (19:29)
[2022-09-21] MEDS ORDERED: HUMALOG100 UNIT/M SC (19:29)
[2022-09-21] MEDS ORDERED: ZOLOFT25 MG PO (19:30)
[2022-09-21] MEDS ORDERED: ASPRUZYO SPRIN500 MG (19:30)
[2022-09-21] MEDS ORDERED: LYRICA50 MG PO (19:30)
[2022-09-21] MEDS ORDERED: BRILINTA90 MG PO (19:31)
[2022-09-21 19:38] LABS: BASO% 0.4 % (0-3); EOS% 3.1 % (0-8); HEMATOCRIT 34.7 % (39.0-50.0); HEMOGLOBIN 10.7 g/dl (14.0-18.0); IMMATURE GRANULOCYTES 0.2 % (0.0-5.0); LYMPH% 15.5 % (15-41); MEAN CELL VOLUME 82.6 fL CALC (80.0-100.0); MEAN CORPUSCULAR HGB 25.5 pG CALC (26.0-32.0); MEAN CORPUSCULAR HGB CONC 30.8 g/dL CAL (32.0-36.0); NEUT# 7.3 thou/uL (1.82-7.42); NEUT% 69.8 % (42-76); RED BLOOD COUNT 4.2 mill/uL (4.70-6.10); RED CELL DISTRI WIDTH 14.4 % (11.5-15.5)
[2022-09-21 19:49] LABS: CREATININE 3.5 mg/dL (0.7-1.3); POTASSIUM 4.6 mmol/l (3.5-5.1); TOTAL PROTEIN 6.6 g/dL (6.3-8.2)
[2022-09-21 20:00] LABS: ALBUMIN 3.2 g/dL (3.2-5.0); BILIRUBIN, TOTAL 0.1 mg/dL (0.2-1.3)
[2022-09-22] VITALS (7 sets, daily range): BP systolic 149–181; BP diastolic 59–83
[2022-09-22] MEDS ORDERED: CLONIDINE0.2 MG TD (01:09)
[2022-09-22] MEDS ORDERED: CARVEDILOL25 MG PO (01:10)
[2022-09-22] MEDS ORDERED: LANTUS100 UNIT (01:17)
[2022-09-22] MEDS ORDERED: NOVOLIN 70/30 SC (01:17)
[2022-09-22] MEDS ORDERED: CLONIDINE0.2 MG/21 TD (08:33)
[2022-09-23] VITALS (8 sets, daily range): BP systolic 138–178; BP diastolic 55–81
[2022-09-23 05:49] LABS: BASO% 0.5 % (0-3); EOS% 6.8 % (0-8); HEMATOCRIT 33.4 % (39.0-50.0); HEMOGLOBIN 10.3 g/dl (14.0-18.0); IMMATURE GRANULOCYTES 0.2 % (0.0-5.0); LYMPH% 22.7 % (15-41); MEAN CELL VOLUME 83.9 fL CALC (80.0-100.0); MEAN CORPUSCULAR HGB 25.9 pG CALC (26.0-32.0); MEAN CORPUSCULAR HGB CONC 30.8 g/dL CAL (32.0-36.0); MONO% 12.3 % (2-13); NEUT# 4.76 thou/uL (1.82-7.42); NEUT% 57.5 % (42-76); RED BLOOD COUNT 3.98 mill/uL (4.70-6.10); RED CELL DISTRI WIDTH 14.6 % (11.5-15.5)
[2022-09-23 06:07] LABS: ALBUMIN 3.1 g/dL (3.2-5.0); CREATININE 3.6 mg/dL (0.7-1.3); MAGNESIUM 1.8 mg/dL (1.6-2.3); POTASSIUM 4.1 mmol/l (3.5-5.1); TOTAL PROTEIN 6.2 g/dL (6.3-8.2)
[2022-09-24] VITALS (7 sets, daily range): BP systolic 153–164; BP diastolic 57–66
[2022-09-24 04:56] LABS: BASO% 0.7 % (0-3); HEMATOCRIT 35.1 % (39.0-50.0); HEMOGLOBIN 10.6 g/dl (14.0-18.0); IMMATURE GRANULOCYTES 0.4 % (0.0-5.0); LYMPH% 24.4 % (15-41); MEAN CORPUSCULAR HGB 25.4 pG CALC (26.0-32.0); MEAN CORPUSCULAR HGB CONC 30.2 g/dL CAL (32.0-36.0); MONO% 13.5 % (2-13); NEUT# 3.86 thou/uL (1.82-7.42); RED BLOOD COUNT 4.18 mill/uL (4.70-6.10); RED CELL DISTRI WIDTH 14.3 % (11.5-15.5)
[2022-09-24 05:23] LABS: CREATININE 3.5 mg/dL (0.7-1.3); MAGNESIUM 1.8 mg/dL (1.6-2.3); POTASSIUM 4.8 mmol/l (3.5-5.1); TOTAL PROTEIN 5.7 g/dL (6.3-8.2)
[2022-09-24 05:31] LABS: BILIRUBIN, TOTAL 0.2 mg/dL (0.2-1.3)
[2022-09-25 04:25] VITALS: BP 168/70
[2022-09-25 05:09] LABS: HEMATOCRIT 33.2 % (39.0-50.0); HEMOGLOBIN 10.2 g/dl (14.0-18.0); MEAN CELL VOLUME 83.2 fL CALC (80.0-100.0); MEAN CORPUSCULAR HGB 25.6 pG CALC (26.0-32.0); MEAN CORPUSCULAR HGB CONC 30.7 g/dL CAL (32.0-36.0); RED BLOOD COUNT 3.99 mill/uL (4.70-6.10); RED CELL DISTRI WIDTH 14.1 % (11.5-15.5)
[2022-09-25 05:10] LABS: ALBUMIN 2.8 g/dL (3.2-5.0); MAGNESIUM 1.7 mg/dL (1.6-2.3); POTASSIUM 4.3 mmol/l (3.5-5.1); TOTAL PROTEIN 5.6 g/dL (6.3-8.2)
[2022-09-25 05:20] LABS: BILIRUBIN, TOTAL 0.1 mg/dL (0.2-1.3)
[2022-09-25 07:24] VITALS: BP 157/67
[2022-09-25 08:58] VITALS: BP 157/67
[2022-09-25] MEDS ORDERED: BUMETANIDE2 MG PO (09:35)
== END 2022-09-25 10:50 | disposition home or self-care (01) | DRG 291 ==
LOC: ED 17:57 → ED-I 19:36 → ED 09-22 01:04 → MS2 09-22 01:05
PROVIDERS: Family Medicine; Internal Medicine; Nurse Practitioner Family; ADMIT Internal Medicine; ATTEND Internal Medicine
DX: I13.0 Hypertensive heart and chronic kidney disease with heart failure and stage 1 through stage 4 chronic kidney disease, or unspecified chronic kidney disease (principal); I50.43 Acute on chronic combined systolic (congestive) and diastolic (congestive) heart failure; N18.4 Chronic kidney disease, stage 4 (severe); N17.9 Acute kidney failure, unspecified; E11.22 Type 2 diabetes mellitus with diabetic chronic kidney disease; E11.40 Type 2 diabetes mellitus with diabetic neuropathy, unspecified; E11.51 Type 2 diabetes mellitus with diabetic peripheral angiopathy without gangrene; H33.321 Round hole, right eye; Z79.4 Long term (current) use of insulin; Z86.718 Personal history of other venous thrombosis and embolism; Z20.822 Contact with and (suspected) exposure to COVID-19